=== PATIENT | male | born 1950 | race Two or more races ===

== ENCOUNTER 2023-10-23 16:16 | Outpatient (CLI) | payer OTHER | END 2023-10-23 16:26 | disposition home or self-care (01) | LOC: RAD 16:16 | PROVIDERS: ATTEND General Practice | DX: I10 Essential (primary) hypertension (principal) ==

== ENCOUNTER 2023-12-16 14:34 | Outpatient (CLI) | payer OTHER | END 2023-12-16 14:36 | disposition home or self-care (01) | LOC: RAD 14:34 | DX: M99.01 Segmental and somatic dysfunction of cervical region (principal); M99.02 Segmental and somatic dysfunction of thoracic region; M99.03 Segmental and somatic dysfunction of lumbar region; M99.04 Segmental and somatic dysfunction of sacral region; M99.05 Segmental and somatic dysfunction of pelvic region ==

== ENCOUNTER 2024-11-15 17:21 | Inpatient (IN) | payer OTHER ==
[~2024-11-15] VITALS: Ht 188 cm; Wt 83.9 kg
--- NOTE | 2024-11-15 18:17 | NUR ---
PTE ALERTA Y ORIENTADO X3 REFIERE VENIR A REGULO DEBIDO A QUE EL MISMO TIENE DOLOR ABDOMINA E INAPETENCIA DESDE HACE 4 DOUGLASS. PTE EXPRESA TENER REFERIDO MEDICO. SE MIDEN S/V Y SE UBICA,
--- NOTE | 2024-11-15 18:47 | NUR ---
SE EJECUTAN ORDENES MEDICAS EN HOLDEN TOTALIDAD
[2024-11-15 18:51] LABS: HEMATOCRIT 34.9 % (39.0-48.0); HEMOGLOBIN 11.9 g/dL (13-16.00); MEAN CELL VOLUME 91.2 fL (80.0-100.00); MEAN CORPUSCULAR HEMOGLOBIN 31.1 pg (27.00-32.0); MEAN CORPUSCULAR HGB CONC 34.1 g/dl (32.0-36.0); PLATELET COUNT 222 K/uL (150-450); RED BLOOD COUNT 3.82 M/uL (4.00-6.00)
[2024-11-15 19:10] LABS: INR 1.17; PARTIAL THROMBOPLASTIN TIME 24.5 SECONDS (22.0-34.0); PROTHROMBIN TIME 12.6 SECONDS (9.0-11.5)
[2024-11-15 19:14] LABS: ALBUMIN 3.3 gm/dL (3.4-5.0); BILIRUBIN TOTAL 0.82 mg/dL (0.3-1.2); CALCIUM 9.1 mg/dL (8.5-10.1); CREATININE SERUM 1.01 mg/dL (0.70-1.30); GFR 72.01; GLOBULINA 3.3 G/DL (2.4-3.5); POTASSIUM 4.24 mEq/L (3.5-5.1); TOTAL PROTEIN 6.6 gm/dL (6.4-8.2)
[2024-11-15 20:36] LABS: URINE APPEARANCE Clear; URINE BILIRRUBIN Negative (NEGATIVE); URINE BLOOD Negative; URINE COLOR Dark Yellow; URINE GLUCOSE Negative (NEGATIVE); URINE KETONE Trace (NEGATIVE); URINE LEUKOCYTE Trace; URINE NITRATE Negative; URINE PROTEIN Trace (NEGATIVE)
[2024-11-15 20:40] LABS: URINE BACTERIA 19.5 uL (0.0-1933); URINE CAST 16.05 uL (0.0-1.40); URINE EPITHELIAL CELLS 14.2 uL (0.0-38.8); URINE RBC 2.9 uL (0.0-20.8); URINE WBC 8.3 uL (0.0-23.2)
[2024-11-15] MEDS ORDERED: FAMOtidine 10 MG/ML (4ML VIAL) IV ONE (20:45)
[2024-11-15] MEDS ORDERED: PIPERACILLIN/TAZOBACTAM SODIUM 3.375 GM VIAL IV ONE (20:45)
[2024-11-15] MEDS ORDERED: 0.9 % SODIUM CHLORIDE 1,000 ML IV SCH (21:15)
[2024-11-15] MEDS ORDERED: IPRATROPIUM BROMIDE 0.5 MG/2.5 ML AMPUL.NEB IH SCH (21:24)
[2024-11-15] MEDS ORDERED: MORPHINE SULFATE 4 MG/ML CARTRIDGE IV PRN (21:30)
[2024-11-15] MEDS ORDERED: ONDANSETRON HCL 4 MG in 0.9 % SODIUM CHLORIDE 50 ML IV PRN (21:30)
[2024-11-15] MEDS ORDERED: MORPHINE SULFATE 4 MG/ML CARTRIDGE IV ONE (21:30)
[2024-11-16] MEDS ORDERED: PIPERACILLIN/TAZOBACTAM SODIUM 3.375 GM in DEXTROSE 5 % IN WATER 100 ML IV SCH
[2024-11-16 06:28] VITALS: BP 147/79
[2024-11-16 08:22] VITALS: BP 155/81; O2SAT 92
[2024-11-16] MEDS ORDERED: FAMOTIDINE/PF 20 MG in 0.9 % SODIUM CHLORIDE 8 ML IV PUSH SCH (09:00)
[2024-11-16] MEDS ORDERED: FUROsemide 40 MG TABLET PO SCH (11:45)
[2024-11-16] MEDS ORDERED: SPIRONOLACTONE 50 MG TABLET PO SCH (11:45)
[2024-11-16 17:47] VITALS: BP 134/80; O2SAT 97
[2024-11-16 19:32] LABS: BILI PERITONEAL FLUID 0.73 mg/dl; TP PERITONEAL FLUID 3.6 g/dl
[2024-11-17 01:09] VITALS: BP 91/47
[2024-11-17 08:23] VITALS: BP 134/70; O2SAT 99
[2024-11-17 08:43] LABS: HEMATOCRIT 35.8 % (39.0-48.0); HEMOGLOBIN 12.2 g/dL (13-16.00); MEAN CELL VOLUME 91.8 fL (80.0-100.00); MEAN CORPUSCULAR HEMOGLOBIN 31.3 pg (27.00-32.0); MEAN CORPUSCULAR HGB CONC 34.1 g/dl (32.0-36.0); PLATELET COUNT 202 K/uL (150-450); RED BLOOD COUNT 3.91 M/uL (4.00-6.00); RED CELL DISTRIBUTION WIDTH 14.1 % (11.5-14.5)
[2024-11-17] MEDS ORDERED: CEFTRIAXONE SODIUM 2,000 MG VIAL IV SCH (09:00)
[2024-11-17 09:35] LABS: CALCIUM 8.9 mg/dL (8.5-10.1); CREATININE SERUM 0.62 mg/dL (0.70-1.30); GFR 126.46; POTASSIUM 4.41 mEq/L (3.5-5.1)
[2024-11-17 17:00] VITALS: BP 155/74; O2SAT 98
[2024-11-18 00:30] VITALS: BP 119/56
[2024-11-18 06:56] LABS: CALCIUM 8.8 mg/dL (8.5-10.1); CREATININE SERUM 0.54 mg/dL (0.70-1.30); GFR 148.32; POTASSIUM 4.53 mEq/L (3.5-5.1)
[2024-11-18 08:35] VITALS: BP 144/82; O2SAT 96
[2024-11-18] MEDS ORDERED: LACTULOSE 20 G/30 ML BLIST.PACK PO NR (12:00)
[2024-11-18] MEDS ORDERED: MAGNESIUM HYDROXIDE 30 ML BLIST.PACK PO NR (12:00)
[2024-11-18] MEDS ORDERED: MINERAL OIL 30 ML BLIST.PACK PO NR (12:00)
== END 2024-11-18 14:56 | disposition home or self-care (01) | DRG 843 ==
LOC: ER 17:24 → MEDJ 21:49
PROVIDERS: General Practice; Radiology Vascular & Interventional Radiology; ADMIT Student in an Organized Health Care Education/Training Program; ATTEND Student in an Organized Health Care Education/Training Program
PROC: BW21YZZ Computerized Tomography (CT Scan) of Abdomen and Pelvis using Other Contrast (ICD-10-PCS; principal; 2024-11-15)
PROC: 3E0F7GC Introduction of Other Therapeutic Substance into Respiratory Tract, Via Natural or Artificial Opening (ICD-10-PCS; 2024-11-15)
PROC: 0W9G3ZZ Drainage of Peritoneal Cavity, Percutaneous Approach (ICD-10-PCS; 2024-11-16)
DX: C80.1 Malignant (primary) neoplasm, unspecified (principal); K65.9 Peritonitis, unspecified; R18.0 Malignant ascites; C78.00 Secondary malignant neoplasm of unspecified lung; C78.7 Secondary malignant neoplasm of liver and intrahepatic bile duct; C78.6 Secondary malignant neoplasm of retroperitoneum and peritoneum; R10.9 Unspecified abdominal pain